=== PATIENT | male | born 1970 | race Caucasian/White ===

== ENCOUNTER 2017-01-03 08:49 | Emergency (ER) | payer BC ==
[2017-01-03] MEDS: Nitroglycerin 0.4 MG Tab.SL SL PRN ×3 (08:58→09:25)
[2017-01-03] MEDS ORDERED: Aspirin 81 MG Tab.Chew PO ONE (09:07)
--- NOTE | 2017-01-03 09:09 | EDM.PDOC ---
ED HPI GENERAL MEDICAL PROBLEM - General Chief Complaint: Cardiovascular Problem Stated Complaint: CHEST PAIN Time Seen by Provider: 01/03/17 08:50 Source of Information: Reports: Patient, EMS, EMS Notes Reviewed, Family History Limitations: Reports: No Limitations - History of Present Illness INITIAL COMMENTS - FREE TEXT/NARRATIVE: Lee awoke at 4 am this morning with precordial L sided chest pain, radiating into both arms, characterized as heavy, with some SOB, sweating, and nausea. Pain was rated an 8/10. He did not medicate, waiting for sxs to resolve. His spouse eventually summoned EMS who transported to [facility] ED before 9 am. Upon arrival, pain rated 5/10, no given, peripheral IV in place. Initial EKG noted NSR with no acute injury. A TNG SL tabs x 3 reduced pain to 3/5. chest/right arm Pain Score (Numeric/FACES): 2 - Related Data Allergies Allergy/AdvReac Type Severity Reaction Status Date / Time Penicillins Allergy Cannot Verified 01/03/17 08:59 Remember Home Meds: Home Meds Allopurinol [Zyloprim] 300 mg PO DAILY 01/03/17 [History] Indomethacin [Indocin] 50 mg PO DAILY PRN 01/03/17 [History] Past Medical History Musculoskeletal History: Reports: Gout - Past Surgical History HEENT Surgical History: Reports: Tonsillectomy GI Surgical History: Reports: Appendectomy Musculoskeletal Surgical History: Reports: Other (See Below) (podiatric surgery for bone chips) ED ROS GENERAL - Review of Systems Review Of Systems: See Below Constitutional: Reports: Malaise HEENT: Reports: No Symptoms Respiratory: Reports: No Symptoms, Shortness of Breath Cardiovascular: Reports: Chest Pain Endocrine: Reports: No Symptoms GI/Abdominal: Reports: Nausea : Reports: No Symptoms Musculoskeletal: Reports: Shoulder Pain, Arm Pain Skin: Reports: No Symptoms Neurological: Reports: No Symptoms Psychiatric: Reports: No Symptoms Hematologic/Lymphatic: Reports: No Symptoms Immunologic: Reports: No Symptoms ED EXAM, GENERAL - Physical Exam Exam: See Below Exam Limited By: No Limitations General Appearance: Alert, WD/WN, Mild Distress Eye Exam: Bilateral Eye: Normal Inspection, PERRL Ears: Normal External Exam Nose: Normal Inspection Throat/Mouth: Normal Inspection, Normal Oropharynx Head: Normocephalic Neck: Normal Inspection, Supple, Non-Tender, Full Range of Motion Respiratory/Chest: No Respiratory Distress, Lungs Clear, Normal Breath Sounds, No Accessory Muscle Use, Chest Non-Tender Cardiovascular: Normal Peripheral Pulses, Regular Rate, Rhythm, No Edema, No Gallop, No JVD, No Murmur, No Rub GI/Abdominal: Normal Bowel Sounds, Soft, Non-Tender, No Organomegaly, No Distention, No Abnormal Bruit, No Mass (Male) Exam: Normal Inspection Rectal (Males) Exam: Deferred Back Exam: Normal Inspection Extremities: Normal Inspection, Normal Range of Motion, Other (some pain with movement of both UEs L>R) Neurological: Alert, Oriented, CN II-XII Intact, Normal Cognition, No Motor/ Sensory Deficits Psychiatric: Normal Affect, Normal Mood Skin Exam: Warm, Dry Lymphatic: No Adenopathy Course - Vital Signs Text/Narrative:: Results of ekgs x 2 and screening labs inconclusive. Case was discussed with Dr Nugent Hospitalist and Dr Briseno Supervisor Carding at [facility], and Lee will be transferred for further evaluation. Heparin 5000 u IV with heparin drip at 18 u/kg/hr and Brillinta 150 mg po was initiated prior to transfer. Patient left [facility] ED in stable condition with residual ongoing chest pain. Last Recorded V/S: Last Vital Signs Temp 36.6 C 01/03/17 08:50 Pulse 70 01/03/17 08:50 Resp 18 01/03/17 10:45 BP 120/69 01/03/17 10:45 Pulse Ox 98 01/03/17 10:45 - Orders/Labs/Meds Orders: Active Orders 24 hr Category Date Time Status Ang Chest [CT] Stat Exams 01/03/17 10:04 Taken Chest 1V Frontal [CR] Stat Exams 01/03/17 09:01 Taken Heparin Sodium/D5W [Heparin 25,000 Units in D5W 500 ML] Med 01/03/17 11:15 Ordered 25,000 units in 500 ml IV TITRATE Sodium Chloride 0.9% [Normal Saline] 1,000 ml Med 01/03/17 09:15 Active IV ASDIRECTED EKG 12 Lead [EK] Routine Ther 01/03/17 09:01 Ordered EKG 12 Lead [EK] Routine Ther 01/03/17 09:59 Ordered Medication Orders Sodium Chloride (Normal Saline) 1,000 mls @ 150 mls/hr IV ASDIRECTED CASA Last Admin: 01/03/17 09:09 Dose: 150 mls/hr Heparin Sodium/Dextrose (Heparin 25,000 Units In D5w 500 Ml) 25,000 units in 500 mls @ 0 mls/hr IV TITRATE CASA; 18 UNITS/KG/HR PRN Reason: Protocol Labs: Laboratory Tests 01/03/17 01/03/17 01/03/17 Range/Units 09:22 09:22 09:22 WBC 13.8 H (4.5-12.0) X10-3/uL RBC 5.19 (4.30-5.75) x10(6)uL Hgb 15.4 (11.5-15.5) g/dL Hct 44.0 (30.0-51.3) % MCV 84.8 (80-96) fL MCH 29.6 (27.7-33.6) pg MCHC 34.9 (32.2-35.4) g/dL RDW 11.9 (11.5-15.5) % Plt Count 246 (125-369) X10(3)uL MPV 8.5 (7.4-10.4) fL Add Manual Diff Yes Neutrophils % (Manual) 77 (46-82) % Lymphocytes % (Manual) 15 (13-37) % Monocytes % (Manual) 7 (4-12) % Eosinophils % (Manual) 1 (0-5) % D-Dimer, Quantitative (100-400) ng/mL Sodium 138 (135-145) mmol/L Potassium 4.2 (3.5-5.3) mmol/L Chloride 104 (100-110) mmol/L Carbon Dioxide 26 (23-29) mmol/L BUN 16 (5-20) mg/dL Creatinine 1.2 (0.6-1.3) mg/dL Est Cr Clr Drug Dosing 71.91 mL/min Estimated GFR (MDRD) > 60 (>60) BUN/Creatinine Ratio 13.3 (9-20) Glucose 107 (80-116) mg/dL Calcium 8.7 (8.6-10.2) mg/dL Total Bilirubin 0.6 (0.1-1.3) mg/dL AST 21 (5-27) IU/L ALT 26 (14-26) IU/L Alkaline Phosphatase 42 L (56-112) IU/L Troponin I < 0.01 L (0.02-0.06) NG/ML Total Protein 7.2 (6.0-8.0) g/dL Albumin 4.2 (3.5-5.2) g/dL Globulin 3.0 g/dL Albumin/Globulin Ratio 1.4 01/03/17 Range/Units 09:22 WBC (4.5-12.0) X10-3/uL RBC (4.30-5.75) x10(6)uL Hgb (11.5-15.5) g/dL Hct (30.0-51.3) % MCV (80-96) fL MCH (27.7-33.6) pg MCHC (32.2-35.4) g/dL RDW (11.5-15.5) % Plt Count (125-369) X10(3)uL MPV (7.4-10.4) fL Add Manual Diff Neutrophils % (Manual) (46-82) % Lymphocytes % (Manual) (13-37) % Monocytes % (Manual) (4-12) % Eosinophils % (Manual) (0-5) % D-Dimer, Quantitative < 100 L (100-400) ng/mL Sodium (135-145) mmol/L Potassium (3.5-5.3) mmol/L Chloride (100-110) mmol/L Carbon Dioxide (23-29) mmol/L BUN (5-20) mg/dL Creatinine (0.6-1.3) mg/dL Est Cr Clr Drug Dosing mL/min Estimated GFR (MDRD) (>60) BUN/Creatinine Ratio (9-20) Glucose (80-116) mg/dL Calcium (8.6-10.2) mg/dL Total Bilirubin (0.1-1.3) mg/dL AST (5-27) IU/L ALT (14-26) IU/L Alkaline Phosphatase (56-112) IU/L Troponin I (0.02-0.06) NG/ML Total Protein (6.0-8.0) g/dL Albumin (3.5-5.2) g/dL Globulin g/dL Albumin/Globulin Ratio Meds: Medications Generic Name Dose Route Start Last Admin Trade Name Freq PRN Reason Stop Dose Admin Sodium Chloride 1,000 mls @ 150 mls/hr 01/03/17 09:15 01/03/17 09:09 Normal Saline IV 150 mls/hr ASDIRECTED CASA Administration Heparin Sodium/Dextrose 25,000 units in 500 mls @ 0 mls/hr 01/03/17 11:15 Heparin 25,000 Units In D5w 500 Ml IV TITRATE CASA Protocol 18 UNITS/KG/HR Discontinued Medications Generic Name Dose Route Start Last Admin Trade Name Jocelyne PRN Reason Stop Dose Admin Aspirin 324 mg 01/03/17 09:07 01/03/17 09:09 Aspirin PO 01/03/17 09:08 324 mg ONETIME ONE Administration Heparin Sodium (Porcine) Confirm 01/03/17 11:01 Heparin Sodium Administered 01/03/17 11:02 Dose 5,000 units .ROUTE .STK-MED ONE Heparin Sodium/Dextrose Confirm 01/03/17 11:02 Heparin 25,000 Units In D5w 500 Ml Administered 01/03/17 11:03 Dose 500 mls @ as directed .ROUTE .STK-MED ONE Iopamidol 75 ml 01/03/17 10:10 01/03/17 10:29 Isovue-370 (76%) IV 01/03/17 10:11 71 ml ASDIRECTED ONE Administration Nitroglycerin 0.4 mg 01/03/17 09:08 01/03/17 09:25 Nitrostat SL 0.4 mg Q5M PRN Administration Chest Pain Ticagrelor Confirm 01/03/17 11:02 Brilinta Administered 01/03/17 11:03 Dose 90 mg PO .STK-MED ONE Ticagrelor Confirm 01/03/17 11:02 Brilinta Administered 01/03/17 11:03 Dose 90 mg PO .STK-MED ONE Ticagrelor 180 mg 01/03/17 11:01 Brilinta PO 01/03/17 11:02 ONETIME ONE Departure - Departure Time of Disposition: 11:09 Disposition: DC/Tfer to Other 70 Reason for Transfer *Q: Primary PCI Indicated Condition: Fair Clinical Impression: Atypical chest pain, Acute coronary syndrome Referrals: Ward Sargent MD [Primary Care Provider] - Forms: ED Department Discharge, Interfacility Transfer EMTALA - Problem List & Annotations (1) Atypical chest pain SNOMED Code(s): 063447395 Code(s): R07.89 - OTHER CHEST PAIN Status: Acute Current Visit: Yes Annotation/Comment:: ACS could not be ruled out. Cardiology at [facility] will assume [facility]. - Problem List Review Problem List Initiated/Reviewed/Updated: Yes - My Orders Last 24 Hours: My Active Orders 01/03/17 09:01 Chest 1V Frontal [CR] Stat EKG 12 Lead [EK] Routine 01/03/17 09:15 Sodium Chloride 0.9% [Normal Saline] 1,000 ml IV ASDIRECTED 01/03/17 09:59 EKG 12 Lead [EK] Routine 01/03/17 10:04 Ang Chest [CT] Stat 01/03/17 11:15 Heparin Sodium/D5W [Heparin 25,000 Units in D5W 500 ML] 25,000 units in 500 ml IV TITRATE - Assessment/Plan Last 24 Hours: My Active Orders 01/03/17 09:01 Chest 1V Frontal [CR] Stat EKG 12 Lead [EK] Routine 01/03/17 09:15 Sodium Chloride 0.9% [Normal Saline] 1,000 ml IV ASDIRECTED 01/03/17 09:59 EKG 12 Lead [EK] Routine 01/03/17 10:04 Ang Chest [CT] Stat 01/03/17 11:15 Heparin Sodium/D5W [Heparin 25,000 Units in D5W 500 ML] 25,000 units in 500 ml IV TITRATE Plan: Follow up with Cardiology and PCP.
[2017-01-03] MEDS ORDERED: Sodium Chloride 0.9% 1,000 ML IV SCH (09:15)
[2017-01-03] MEDS ORDERED: Iopamidol 755 Mg/ML 75 ML Bottle IV ONE (10:10)
[2017-01-03] MEDS ORDERED: Ticagrelor 90 MG Tab PO ONE ×3 (11:01→11:02)
[2017-01-03] MEDS ORDERED: Heparin Sodium/D5W 500 ML ONE (11:02)
[2017-01-03] MEDS: Heparin Sodium 5,000 Units/ML Vial ONE ×2 (11:11→11:14)
[2017-01-03] MEDS ORDERED: Heparin Sodium 5,000 Units/ML Vial IVPUSH ONE (11:13)
[2017-01-03] MEDS ORDERED: Heparin Sodium/D5W 25,000 UNITS/500 ML BAG IV SCH (11:15)
--- NOTE | 2017-01-03 11:17 | CR ---
INDICATION: Chest pain since 0400 hours. CHEST: AP portable upright view of the chest 01/03/2017 - no comparisons. The heart is emphasized by AP positioning and relatively poor inspiration. It most likely is near the upper limits of normal. A minimal dextroconcave scoliosis of the lower thoracic spine is noted. An active infiltrate or effusion was not identified. Overlying EKG leads are noted. IMPRESSION: No definite acute process. Full inspiration PA and lateral views of the chest recommended when clinically possible for more complete evaluation of the heart size. MTDD
--- NOTE | 2017-01-03 11:36 | CT ---
INDICATION: Left-sided chest pain. D-dimer normal, enzymes normal. CT ANGIOGRAPHY OF THE CHEST: Spiral 1.25-mm axial sections were obtained through the chest with 71 mL Isovue-370 at 4 mL per second, with sagittal and coronal reconstructions, 01/03/2017. No comparison CTs are available. Total Exam DLP = 778.74 mGy-cm. Upper abdomen visualized appeared normal. The heart appears generous in size and may be slightly enlarged. No mediastinal masses are identified. Only minimal mediastinal lymphadenopathy is present and is nonspecific. No nodular masses are noted in the lungs or pleural spaces. The spine showed evidence of mild hypertrophic degenerative changes anteriorly off vertebral bodies upper middle through lower middle levels. The aorta appears to be grossly normal. No evidence of pulmonary emboli could be identified. An active infiltrate or effusion was not identified. IMPRESSION: 1. No evidence of pulmonary emboli. 2. No active infiltrate or effusion or nodular masses. 3. The heart appears generous in size and may be minimally enlarged. Report was given in person to Dr. Teixeira soon after the examination was completed , 01/03/2017. JENNIFER
== END 2017-01-03 11:30 | disposition other institution (70) ==
LOC: FB.ED 08:49
DX: I24.9 Acute ischemic heart disease, unspecified (principal); Z88.0 Allergy status to penicillin; Z79.899 Other long term (current) drug therapy
CPT/HCPCS: 36415; 71010; 71275; 80053; 84484; 85025; 85379; 93005; 96361; 96365; 96375; 99285; A9270; J1644; J7040; Q9967

== ENCOUNTER 2017-02-01 19:03 | Emergency (ER) | payer OTHER, BC ==
--- NOTE | 2017-02-02 08:19 | ER ---
DATE SEEN: 02/01/2017 HISTORY OF PRESENT ILLNESS: The patient is a 46-year-old man, who comes in with history of having left eye foreign body corneal irritation in December. Now, he comes in with blood in his left eye, and there is something hanging from the upper inner lid. He saw an freight dispatcher today but no abnormalities noted. He noted that, for the past 2 days, he has had pus in his eye and, tonight, does have blood in his eye. He thought perhaps these were secretions. 20/20 right vision, 20/30 left vision. PAST MEDICAL HISTORY: Gout. He is using indomethacin and allopurinol as needed. History of acute coronary syndrome in the past. On January 03, 2017, the patient had chest pain. He was seen in the emergency room for further evaluation. At that time, he was transferred to [place] on heparin and Brilinta and had coronary angiography. MEDICATIONS: See chart. ALLERGIES: Penicillins. REVIEW OF SYSTEMS: Otherwise negative. PHYSICAL EXAMINATION: VITAL SIGNS: Blood pressure 120/69, heart rate 77, respirations 18, oxygen saturation 98%, and temperature is 36.8 degrees centigrade. HEENT: The patient has injection in left sclera, and he has protruding from the upper lid a dumbbell shaped lesion fleshy hemangioma with each end of the dumbbell measuring 3 X 3 mm . This is quite secure on the upper canthal mucosa. PERRLA intact. Pharynx without abnormality. Eyegrounds normal appearance. No cervical adenopathy, thyromegaly, or masses in neck. No bruits. LUNGS: Clear without rales, rhonchi, or wheezes. HEART: S1 and S2. No irregular rate and rhythm. ABDOMEN: Soft. No guarding. No abdominal discomfort. EXTREMITIES: Without abnormality. PLAN: The patient's status was discussed with Dr. Ceja, scouring pads supervisor, . The patient will be seeing doctor at [place] tomorrow and will be going to the clinic at [address] [place] [address] and the telephone number is . He is to call to make arrangement for the time to be seen in the clinic tomorrow. 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 No suggestion of conjunctivitis. /[id number] VINEET/RODRIGUE MUNOZD
== END 2017-02-01 20:30 | disposition home or self-care (01) ==
LOC: FB.ED 19:03
DX: H01.8 Other specified inflammations of eyelid (principal); D18.09 Hemangioma of other sites; Z88.0 Allergy status to penicillin
CPT/HCPCS: 99283

== ENCOUNTER 2021-06-03 06:00 | Day surgery (SDC) | payer BC ==
[2021-06-03] MEDS ORDERED: Propofol 200 MG/20 ML SDV IV ONE (06:01)
[2021-06-03] MEDS ORDERED: Sodium Chloride 0.9% 10 ML Syringe FLUSH PRN (06:15)
[2021-06-03] MEDS: Lactated Ringers 1,000 ML IV SCH (07:04)
[2021-06-03 08:28] VITALS: PULSE 66
[2021-06-03 09:15] VITALS: BP 125/76
== END 2021-06-03 08:48 | disposition home or self-care (01) ==
LOC: FB.SDS 06:00
PROVIDERS: ATTEND Surgery
DX: Z12.11 Encounter for screening for malignant neoplasm of colon (principal); F17.220 Nicotine dependence, chewing tobacco, uncomplicated; Z79.899 Other long term (current) drug therapy; Z88.0 Allergy status to penicillin; Z90.49 Acquired absence of other specified parts of digestive tract; Z98.890 Other specified postprocedural states
CPT/HCPCS: 00812-QZ; J2704; J7120